=== PATIENT | female | born 1960 | race Caucasian/White ===

== ENCOUNTER 2021-10-25 08:09 | Day surgery (SDC) | payer OTHER ==
[~2021-10-25] VITALS: Ht 154.9 cm; Wt 73.5 kg
[~2021-10-25 08:09] MED LIST: AMBIEN10 MG PO; CLONAZEPAM0.5 MG PO; CRESTOR10 MG PO; IMODIUM A-D2 M2 PO; PROZAC40 MG PO; RISPERIDONE O0.25 MG PO; SYNTHROID88 MCG PO; ZEGERID 40 MG1 EACH PO; ZYRTEC10 M3 PO
== END 2021-10-25 12:45 | disposition home or self-care (01) ==
LOC: CIR.AMB 08:09
PROVIDERS: ATTEND Colon & Rectal Surgery
DX: R15.9 Full incontinence of feces (principal); R32 Unspecified urinary incontinence; Z91.013 Allergy to seafood; E11.9 Type 2 diabetes mellitus without complications; G43.909 Migraine, unspecified, not intractable, without status migrainosus; M19.90 Unspecified osteoarthritis, unspecified site; K76.0 Fatty (change of) liver, not elsewhere classified; E03.9 Hypothyroidism, unspecified
CPT/HCPCS: 64581; 95972; C1778

== ENCOUNTER → 2021-11-08 | Day surgery (SDC) | payer OTHER | END | disposition home or self-care (01) | LOC: ADM 11-04 12:00 → CIR.AMB 05:55 | PROVIDERS: ATTEND Colon & Rectal Surgery | DX: R15.9 Full incontinence of feces (principal); Z91.013 Allergy to seafood; Z87.891 Personal history of nicotine dependence; R73.03 Prediabetes; E03.9 Hypothyroidism, unspecified; F32.A Depression, unspecified; K21.9 Gastro-esophageal reflux disease without esophagitis | CPT/HCPCS: 64590; 95972; C1767 ==